=== PATIENT | male | born 1965 | race Caucasian/White ===

== ENCOUNTER 2022-02-12 16:34 | Emergency (ER) | payer BC, SELFPAY ==
[2022-02-12 16:46] VITALS: BP 149/86; PULSE 89; RESP 18; TEMP 36.4; O2SAT 98; BMI 36.3
--- NOTE | 2022-02-12 17:16 | CRLHL7_ITS ---
For Patients: As a result of the Cures Act, medical imaging exams and procedure reports are released immediately into your electronic medical record. You may view this report before your referring provider. If you have questions, please contact your health care provider. Indication: Fell. Technique: Left knee 3 views Comparison: None Findings: Bones: Alignment is normal. No fractures or bone lesions. Joint spaces: Degenerative changes in the form of medial joint space narrowing and osteophyte projecting from the patellofemoral joint. Soft tissue calcifications along the patellar tendon could be degenerative change or from prior injury. Soft tissues: Unremarkable. Impression: No sign of acute injury. Dictated by Brad Conti MD @ 02/12/2022 6:26:52 PM (Electronically Signed)
--- NOTE | 2022-02-12 17:19 | ED_ITS ---
HPI - General Adult General Chief complaint: Lower Extremity Swelling Stated complaint: Slip and fell, [place] a pop in his L knee Time Seen by Provider: 02/12/22 16:37 History of Present Illness HPI narrative: This 56-year-old male comes in with injury to his left knee. He was getting out of his pickup and as he stepped onto the ground he slipped on the ice and bent his knee to a squat position. During this maneuver he felt a pop in his knee and since then he has not been able to bear weight on his knee. He does have some mild swelling with tenderness more in the medial aspect of his left knee. He does not report any other injury. Related Data Previous Rx's Medication Instructions Recorded Crutches- Adult #1 ea 02/12/22 Allergies Allergy/AdvReac Type Severity Reaction Status Date / Time No Known Drug Allergies Allergy Verified 02/12/22 16:46 Review of Systems Status of ROS: Reports: 10 or more systems reviewed and unremarkable except as noted in History and below Narrative: Constitutional: No fevers, no weight gain or loss. Eyes: No discharge. No vision changes. HENT: No congestion, no sore throat, no ear pain. Cardiovascular: No chest pain, no palpitations. Respiratory: No shortness of breath, no wheezes, no cough. Gastrointestinal: No abdominal pain, no vomiting, no diarrhea. Genitourinary: No dysuria, no hematuria. Musculoskeletal: Left knee injury as described above. Skin: No rashes, no pruritis. Neurological: No dizziness, weakness, sensory change, speech change. Endo/Heme/Allergies: No bruising or bleeding. No polydipsia. Pysch: no suicidality, no anxiety, no insomnia. All other systems reviewed and are negative. PFSH PFSH Social History Smoking Status: Never smoker Do you use any of these nicotine containing products: None Second hand tobacco smoke exposure: Yes How often do you have a drink containing alcohol: 2-3 times a week How many standard drinks containing alcohol do you have on a typical day: 3 or 4 How often do you have six or more drinks on one occasion: Never AUDIT-C Alcohol total score: 4 Non-prescribed substance use: denies use service: No Exam Narrative: Exam Narrative: Constitutional: Well-developed, well-nourished, no acute distress. HEENT: Normocephalic, atraumatic. Neck: Normal range of motion. Nontender. Supple. Heart: Intact distal pulses. Lungs: No chest discomfort. No wheezes, rhonchi, or rales. Abdomen: Nontender. Back: Normal range of motion. Extremities: Left knee has mild swelling with tenderness diffusely around the joint. He has some increased pain when moving his patella. He is able to raise his leg from the bed but states that he cannot tolerate weight-bearing. Skin: Intact. No rash. Warm. No erythema or pallor. Neurologic: No altered sensation. No weakness. Alert and oriented. Psychiatric: No suicidality. No anxiety or depression. No insomnia. Nursing notes and vitals signs are reviewed. Const: Vital Signs, click to edit/add: Vital Signs - 24 hr 02/12/22 16:46 Temperature 97.6 F Pulse Rate [Pulse Oximeter] 89 Respiratory Rate 18 Blood Pressure [Le ft Upper Arm] 149/86 H Pulse Oximetry 98 Oxygen Delivery Me thod Room Air Course Vital Signs Vital signs: Initial Vital Signs Temperature 97.6 F 02/12/22 16:46 Temperature Source Temporal Artery Scan 02/12/22 16:46 Pulse Rate 89 02/12/22 16:46 Pulse Rhythm 02/12/22 16:46 Respiratory Rate 18 02/12/22 16:46 Blood Pressure 149/86 H 02/12/22 16:46 Blood Pressure Mean 107 02/12/22 16:46 Blood Pressure Position Supine 02/12/22 16:46 Pulse Oximetry 98 02/12/22 16:46 Oxygen Delivery Method 02/12/22 16:46 Vital Signs Temperature 97.6 F 02/12/22 16:46 Pulse Rate 89 02/12/22 16:46 Respiratory Rate 18 02/12/22 16:46 Blood Pressure 149/86 H 02/12/22 16:46 Pulse Oximetry 98 02/12/22 16:46 Oxygen Delivery Method 02/12/22 16:46 Temperature 97.6 F 02/12/22 16:46 Pulse Rate 89 02/12/22 16:46 Respiratory Rate 18 02/12/22 16:46 Blood Pressure 149/86 H 02/12/22 16:46 Pulse Oximetry 98 02/12/22 16:46 Oxygen Delivery Method 02/12/22 16:46 Medical Decision Making MDM Narrative Medical decision making narrative: This patient comes in with an injury to his left knee as described above. X-ray imaging is obtained and reviewed by radiologist which shows by their report no acute findings. By my assessment there does appear to be a E bone chip superior to the patella. On exam there appears to be a step-off just superior to the patella typical of a quadriceps tendon rupture. I did use bedside ultrasound an d there is a discrepancy when comparing images from right knee to the left knee. I contacted the orthopedic physician's assistant clinical director donor services technician, Nancie, who will arrange for follow-up visit in clinic in 3 days. They will obtain an MRI and proceed accordingly. The patient was placed in a knee immobilizer and fitted with crutches. He received prescription for some tablets of oxycodone. Imaging Data XR L Knee: Radiologist's impression: No sign of acute injury. Discharge Plan Discharge Clinical Impression: Quadriceps tendon rupture Patient Disposition: Home w/ Parent or Adult Condition: Unchanged Additional Instructions: Wear knee immobilizer and use crutches for ambulating. Take medication as needed and directed. Follow up with orthopedic clinic on Tuesday. They will call you to arrange for appointment. The phone number for the orthopedic clinic if needed is [phone]. Prescriptions: New (DME) Crutches- Adult Misc See Rx Instructions .ROUTE .MEDSUPPLY Qty: 1 0RF Rx Instructions: As directed Follow Up/Referrals: Yandel Raya MD [Primary Care Provider] - Stand Alone Forms: [employer] Info Instructions
== END 2022-02-12 20:08 | disposition home or self-care (01) ==
PROVIDERS: Emergency Provider Emergency Medicine Emergency Medical Services; PCP Family Medicine
DX: S76.112A Strain of left quadriceps muscle, fascia and tendon, initial encounter (principal); W00.9XXA Unspecified fall due to ice and snow, initial encounter
CPT/HCPCS: 73562; 99283; 99284

== ENCOUNTER 2022-02-24 07:52 | Outpatient (CLI) | payer BC, SELFPAY ==
--- NOTE | 2022-02-24 08:15 | MR_ITS ---
[address] [address] Phone:?[phone] Fax:?[phone] Referring Physician Information: Ambrocio Moore [address] [facility] [address] Phone:?[phone] Fax:?[phone] Patient:Reji Luna D.O.B:?1965 Sex:?Male Phone:?[phone] [facility] MRN:?[id number] Exam Date:?02/24/2022 ? EXAM: MRI OF THE LEFT KNEE CLINICAL INFORMATION: The patient is a 56-year-old with left knee pain. Evaluate for quadriceps tendon injury. PRIOR SURGERY: None reported. COMPARISON STUDIES: There are no prior studies available for comparison. TECHNICAL INFORMATION: Imaging was performed on a high-field, 1.5 Leeann MR scanner. Axial proton-density and fat-suppressed T2 imaging of the left knee was performed in addition to sagittal proton-density and fat-suppressed proton- density imaging. Coronal proton-density and coronal STIR imaging was also performed. FINDINGS: Articular/Extraarticular collections: Effusion: Mild to moderate. Popliteal cyst: Minimal. Loose bodies: No well-defined intra-articular loose bodies are present. Subcutaneous and extraarticular soft tissues: Subcutaneous soft tissue edema and/or hemorrhage can be seen circumferentially about the left knee, but most prominently noted along the anterior aspect of the knee, likely related to the patient's distal quadriceps tendon injury discussed below. Osseous structures: No evidence for marrow edema or cortical injury. No evidence for fracture or stress injury. No evidence for destructive bony lesion. Ligamentous structures: ACL: Intact and normal in appearance. PCL: Intact and normal in appearance. MCL: Chronic thickening and irregularity of the proximal and mid portions of the MCL can be seen on coronal series 7 image 17, in keeping with a chronic grade 2 sprain. No evidence for transverse disruption of MCL fibers can be seen. No acute injury is noted. LCL: Intact and normal in appearance. Posterolateral corner: Intact and normal in appearance. Posteromedial corner: No posteromedial corner soft tissue injury. Semimembranosus and pes anserine tendons demonstrate no tendinopathy or associated bursitis. Extensor mechanism/Patellar retinacular structures: Patellar tendon: Intact, without tendinopathy. Quadriceps tendon: The distal quadriceps tendon is abnormal in appearance. There is high-grade partial-thickness tearing of the distal quadriceps tendon fibers involving greater than 90% of the tendon thickness and seen to best advantage on sagittal series 6 image 18 and on axial series 4 image 7. The area of tearing measures approximately 2.6 cm in radiocarpal dimension, 3.5 cm in mediolateral dimension, and 1.3 cm in anteroposterior dimension. Intact posteromedial fibers are seen on axial series 4 image 7 and on sagittal series 6 image 16. Retinacula: Strain involving the distal vastus medialis and vastus lateralis can be seen with tearing of the medial patellar retinaculum and medial patellofemoral ligament seen on axial series 4 image 13. No definite evidence for well-defined tearing of the lateral patellar retinaculum is noted. Medial compartment: Medial meniscus: No evidence for medial meniscal tearing can be seen. There is no evidence for parameniscal cyst formation. No meniscocapsular separation injury is identified. Medial femoral condyle: Grade II chondromalacia can be seen along the weightbearing surfaces of the medial femoral condyle. No full-thickness chondral defects are present. Medial tibial plateau: No chondromalacia, chondral defect, or osteochondral abnormality. Lateral compartment: Lateral meniscus: No evidence for lateral meniscal tearing is present. No evidence for parameniscal cyst formation can be seen. Lateral femoral condyle: No chondromalacia, chondral defect, or osteochondral abnormality. Lateral tibial plateau: No chondromalacia, chondral defect, or osteochondral abnormality. Patellofemoral compartment: Patella: Grade II chondromalacia can be seen along the lateral patellar facet on axial series 3 image 16. No full-thickness patellar chondral defects are noted. Trochlea: No chondromalacia, chondral defect, or osteochondral abnormality. Neurovascular: No definite neurovascular abnormalities are seen. CONCLUSION: 1. High-grade partial-thickness tear of the distal quadriceps tendon fibers as described above. Additional injury to the medial patellofemoral ligament and medial patellar retinaculum can be seen with surrounding soft tissue edema and/or hemorrhage. 2. No acute bony abnormalities are seen. 3. No evidence for medial or lateral meniscal tearing is present. 4. Chronic incomplete MCL sprain. The cruciate ligaments appear intact. 5. Chondromalacia of the medial femoral condyle and patella. No full-thickness chondral defects are seen. AEC Electronically signed on 02/24/2022 12:34:00 PM by Jorge Qureshi M.D.
== END 2022-02-24 07:53 | disposition home or self-care (01) ==
LOC: MRI 07:53
PROVIDERS: PCP Family Medicine; Visit Provider Physician Assistant Surgical
DX: M25.562 Pain in left knee (principal); S76.111A Strain of right quadriceps muscle, fascia and tendon, initial encounter
CPT/HCPCS: 73721

== ENCOUNTER 2022-03-01 08:53 | Day surgery (SDC) | payer BC, SELFPAY ==
[2022-03-01] VITALS (17 sets, daily range): BP systolic 113–145; BP diastolic 71–97; PULSE 64–84; RESP 12–18; TEMP 36.3–36.9; O2SAT 94–98; BMI 39.9
[2022-03-01] MEDS: LACTATED RINGERS 1000 ML 1,000 ML 100 ML IV (09:15)
[2022-03-01] MEDS: SODIUM CHLORIDE 0.9 % (FLUSH) 10 ML SYRINGE IVF (09:15)
--- NOTE | 2022-03-01 10:29 | SUR.PREOP ---
TIME?OUT:?1029 PT/RN/MDA?VERIFICATION?OF?SURGICAL?SITE,?PROCEDURE,?AND?CONSENT OBTAINED?PRIOR?TO?INVASIVE?PROCEDURE.
[2022-03-01] MEDS: MIDAZOLAM HCL 1 MG/ML inj IVP (10:39)
[2022-03-01] MEDS: fentaNYL 100 MCG/2 ML inj IVP (10:39)
--- NOTE | 2022-03-01 10:51 | P.NB_ITS ---
Nerve Block Nerve Block Time Seen by Provider: 10:32 Date Seen: 03/01/22 Type of block requested by surgeon for post-operative analgesia: femoral Side: left Time out performed: Yes Verification of patient name: Yes Verification of date of : Yes Site marking: site marked Name of person performing procedure: Arturo Cordero Continuous monitoring Was continuous monitoring of O2 sat, B/P, health service coordinator, recorded every 15 minutes?: Yes Procedure Checklist: sterile prep, needles and gloves Ultrasound guided. Images saved: Yes Medications given in 5ml increments after negative aspiration: Ropivicaine %: 0.5 mL: 20 Needle gauge: 20 Decadron (mg): 10 Precedex (mcg): 20 Patient tolerated procedure well: Yes Block Charges Block Charge (with Pro Fee): Femoral Nerve Use of Ultrasound Machine for Block: Yes- US Guidance/pain block
--- NOTE | 2022-03-01 11:00 | CRLHL7_ITS ---
For Patients: As a result of the Cures Act, medical imaging exams and procedure reports are released immediately into your electronic medical record. You may view this report before your referring provider. If you have questions, please contact your health care provider. Indication: Left knee quad tendon repair Technique: Two fluoroscopic images of the left knee. Fluoroscopic time 7.2 seconds. IMPRESSION: Fluoroscopic guidance for quadriceps tendon repair. Dictated by Franklin Carreon MD @ 03/01/2022 1:52:55 PM (Electronically Signed)
[2022-03-01] MEDS: CEFAZOLIN 2 GM in 0.9 % SODIUM CHLORIDE Mini-bag 100 ML IVPB (12:35)
--- NOTE | 2022-03-01 13:38 | W.ANESCHARGE ---
Anesthesia Charges Start Date/Time Anesthesia Start Date: 03/01/22 Anesthesia Start Time: 12:33 Stop Date/Time Anesthesia Stop Date: 03/01/22 Anesthesia Stop Time: 14:05 Summary Emergency: No
--- NOTE | 2022-03-01 13:38 | PM.ORPRC ---
Procedure Note Date of procedure: 03/01/22 Procedure: PREOPERATIVE DIAGNOSIS: 1. Left distal quadriceps tendon rupture, closed, acute POSTOPERATIVE DIAGNOSIS: 1. Left distal quadriceps tendon rupture, closed, acute PROCEDURE: 1. Left distal quadriceps tendon open repair 2. 57701 - intraoperative fluoroscopy up to 1 hour. SURGEON: Cisco Nelson MD. NETWORK SUPPORT MANAGER: ELIGIO Fernando - Of note, an recreational assistant was critical for this case to aid in patient positioning, tissue retraction, limb manipulation/positioning, and closure. ANESTHESIA: Spinal anesthetic EBL: Less than 10 mL IMPLANTS: Arthrex 2.0mm Suturetape suture (x2) TOURNIQUET: 50 min at 300 torr COMPLICATIONS: None evident INDICATIONS: The patient is a pleasant 56-year-old male who experienced an eccentric load to the left quadriceps muscle group. This resulted in severe pain and inability to bear weaight. Workup including history and physical exam was concerning for quadriceps rupture. An MRI was obtained and confirmed the suspicion. Surgery was recommended to restore the function of the left lower extremity. FINDINGS: The quad tendon had been nearly completely avulsed from its insertion with only a few deep fibers still attached. Additionally, the retinaculum was split both medially and laterally to the midaxial line. DESCRIPTION OF PROCEDURE: Following a thorough discussion of risks, benefits, and alternatives consent was obtained and the left knee was marked. The patient was brought to the operating room and placed supine on the operating table. Induction of anesthesia was undertaken. 2 g IV Ancef was administered within 1 hr of incision preoperatively. Proper time-out was performed identifying proper patient, site, procedure. The operative extremity was prepped and draped in the appropriate sterile fashion using ChloraPrep after the patient was positioned supine with all bony prominences well padded. A longitudinal, anterior, midline skin incision was made starting approximately 3cm proximal to the superior pole of the patella and advanced distal just beyond the inferior pole of the patella. A hematoma/hemarthrosis was immediately encountered and evacuated from the wound. The margins of the rupture were assessed and debrided of unhealthy tissue. Likewise, the proximal pole of the patella was debrided with a rongeur for the planned reapproximation site. Attention was turned to the quadriceps tendon. #5 Suturetape was utilized in a running locking [place] technique. A second suture was placed in the same fashion leaving a total of 4 tails exiting the distal quadriceps tendon stump. 3 separate beath pins were then drilled from proximal to distal through the patella localizing their position with c-arm fluoroscopic imaging in both the AP and lateral planes. After confirming the pins to be intraosseous and parallel, small longitudinal slits were made in the patellar tendon on the beath pin down to bone to ensure no tissue interposition during the tying of the sutures. The suture tails were loaded in the pins and brought distally through the patella. One limb of each tail was brought deep to the tendon. With tension on the sutures, the knee was flexed to take any creep out of the sutures., which were then tied. A #1 Stratafix PDS suture was then utilized to reapproximate the retinacular disruption in a running [place] technique. The knee was again placed through a range of motion and the repair remained stable. A thorough irrigation was performed with normal saline. Closure was then performed with 2-0 Vicryl and 4-0 Monocryl for subcutaneous and subcuticular layers, resepectively. Dressings were applied and the patient was awoken from anesthesia after the tourniquet deflated and transferred the PACU in stable condition. PLAN: 1. Weight bear as tolerated operative extremity with the brace locked in extension. 2. Ice. 3. Twice a day aspirin 4. Analgesics PRN (e.g. acetominophen, ibuprofen, Percocet). 5. F/U with a PA visit in 2 weeks for wound check. Initiate physical therapy at approximately 3-3.5 weeks postop released him and initiation of gentle range of motion. Goal is 0-90 degrees x 6 weeks.
== END 2022-03-01 15:15 | disposition home or self-care (01) ==
LOC: OR 08:53
PROVIDERS: PCP Family Medicine; Visit Provider Orthopaedic Surgery Sports Medicine
PROC: (CPT 27385; principal; 2022-03-01 11:00)
DX: S76.112A Strain of left quadriceps muscle, fascia and tendon, initial encounter (principal)
CPT/HCPCS: 27385; 01480; 64447; 73560; 76000; 76942; J0690; J1100; J1170; J2250; J2400; J2704; J2795; J3010; J7120

== ENCOUNTER 2022-07-27 09:15 | Outpatient (RCR) | payer BC, SELFPAY ==
--- NOTE | 2022-03-31 12:35 | PT.OPEX ---
PT [place] Outpatient Eval PT [facility] Outpatient Eval Start: 03/31/22 08:25 Freq: Status: Active Protocol: Document 03/31/22 08:26 TANO (Rec: 03/31/22 09:32 SEW [id number]) E-signed By Amy Campbell DPStephanie Physical Therapy Outpatient Evaluation Insurance Information Insurance Name [employer] Medical Diagnosis s/p L distal quadriceps tendon open repair Treating Diagnosis Impaired knee ROM, impaired gait, impaired L LE strength, scar formation, impaired LE Motor control and balance Referring MD Dr. Nelson Subjective Subjective Pt was stepping out of his truck 02/12/22 and felt a pop in L knee and fell into a squat position on icy/slippery surface. Immediate severe pain and swelling in L knee. Went to ER, given crutches and they wrapped his knee. 10 days later he got an MRI showing an ugly tear in L distal quad tendon. Dr. Nelson did surgery 03/01/22. Doing well post-surgery. Some swelling around knee, and some mild pain. Has been using his crutches only for stairs or stepping out/into the car when he feels off balance. Wearing T-scope brace locked in extension when he is up. Can unlock when he is resting and sitting. Leg feels weak when he's standing with brace. Not on pain meds now, just soreness he feels mostly. Icing 4-5x per day which helps . Gets up and moves around often at home. 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 Has 7 steps x 2 in his split level home with B railings. Very active at baseline: hunting, fishing, 4 wheeling, family [place] [facility] so he goes there year round. R knee pain since 15 years ago when he injured his ACL, has arthritis in this knee now. It gets sore if he is doing a lot, like at work. Also occasional back pain. L RCR 3 years ago at [facility]. Goals are to return to hobbies and full return to work. Pain Comments 04/30 Date of Last Physician Visit 03/17/22 Date of Next Physician Visit 04/13/22 Date of Surgery (If applicable) 03/01/22 Current Work Status [employer] Occupation Works at [employer] Precautions Treatment Precautions/Contraindications WBAT in T-scope brace locked in extension, can unlock if resting and sitting. 0-90 deg flexion okay until next MD appt 04/13/22. Weight Bearing Status Weight Bear as Tolerated Therapy Limitations/Systems Review Not Limited Objective Strength deferred due to post-op status L LE WNL's R LE Palpation nontender around L knee and scar - numb however near scar Balance & Gait Amb with T-scope brace no crutches, brought crutches just in case. He states he uses them on the stairs or getting in/out of the car. Amb with reduced heel strike, flat foot strike L LE, slight limping, shortened steps, increased trunk lean. Other/Pertinent Objective ROM: Knee: L 0-50 deg (empty/firm end feel); R 0-130 deg Hip: WNL's B Swelling: Circumferential measurements L knee suprapatellar: 48 cm mid patellar: 44 cm infrapatellar: 41 cm Scar mobility: restricted along middle and lower part of scar, healing well, glue still intact. Assessment Assessment/Impression Pt is s/p L quad tendon open repair on 03/01/22, DOI 02/12/22 when he was stepping out of a truck and slipped on the ice. He is currently in T-scope brace locked in extension and ok to unlock in sitting/ resting position. Amb with crutches only for stairs or car transfers. Exam findings today show knee ROM 0-50 deg, impaired L quad strength and activation, L LE strength, balance, gait, motor control. R LE within normal limits despite R knee pain for years on/off. 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 He would greatly benefit from skilled PT services to address his current limitations, improve function and recover per quad tendon repair protocol to PLOF . He is highly motivated to participate and recover. PMH: ongoing R knee pain d/t past injury and arthritis, occ. back pain and L RCR 3 years ago. Primary Functional Limitations walking, stairs, squatting, kneeling, walking on uneven surfaces, hunting/fishing/ yardwork Plan of Care Rehabilitation Potential Excellent Physical Therapy Goals Within 12 weeks: 1. Pt will achieve L knee ROM 120 deg for sitting and squatting to the floor. 2. Pt will ambulate without knee brace with good heel strike, equal step length, no limp and tolerance up to 10-15 minutes. 3. Pt will be able to put on his socks, get dressed and shower without difficulty. 4. Pt will be able to perform stairs reciprocally to access split level home using 1 railing. Within 16-20 weeks: 5. Pt will return to work without restrictions. 6. Pt will be able to return to hunting, fishing and outdoor activities without difficulty. 7. Pt will be able to perform all ADL's and walking without pain and full knee ROM equal to opposite side. Coordination/Communication With Referral Source Treatment Plan/Direct Interventions Electrical Stimulation,Gait Training,Joint Mobilization, Manual Therapy,Neuromuscular Re-ed,Self-Care/Home Management,Therapeutic Activities,Therapeutic Exercises Frequency/Duration 1-2x weekly x 16-20 weeks; start 2x weekly scale back to 1x weekly as progression and improvements are seen. Patient Will Be Discharged From Therapy Completion of LTG(s),Skills Plateau,Independent w/HEP, Independently Progressing Evaluation Billing Untimed Code Treatment Minutes 25 Complexity Moderate Certification Information Physician Comment/Change : Physician NPI Number #
== END 2022-07-27 14:54 | disposition home or self-care (01) ==
PROVIDERS: PCP Family Medicine; Visit Provider Physician Assistant Surgical
DX: Z98.890 Other specified postprocedural states (principal); Z51.89 Encounter for other specified aftercare
CPT/HCPCS: 97110; 97112; 97116; 97140; 97162; 97530